=== PATIENT | female | born 1990 | race Caucasian/White ===

== ENCOUNTER → 2020-03-11 | Outpatient (CLI) | payer BC, OTHER ==
[2020-03-11 13:58] VITALS: BP 151/74; PULSE 100; RESP 18; TEMP 98.3
--- NOTE | 2020-03-11 14:28 | P.HPBAR ---
Bariatric H&P - History & Physicial H&P Date: 03/11/20 History & Physicial: Visit/CC: initial visit Patient initial contact: Initial weight: Initial weight in pounds: Height: 5 ft 3 in Initial BMI: Last weight: Current weight: 112.945 kg Current weight in pounds: Current BMI: [place] body weight (based on NIH guidelines): Excess body weight loss: The patient is a 30 year-old F who presents for Bariatric Assessment. She reports having the sleeve. She has severe panniculitis. She reports severe skin sores. She cannot lose weight. She had gallstones in the past. She had a sleeve 2011. Highest weight 340 pounds. Lowest weight 220 pounds. She had sleeve and had her baby in year. Dr Rai did the band to sleeve. She had chronic nausea. Burrer [employer] notes needed. She had skin problems in the past year all along and does not go away. Will need pictures. She is being treated for hidra-adenitis. She is pending leno. She wants assessment of her sleeve. She wants treatment of her weight gain. Has 10 pounds. PLAN: 1. Nystatin powder 2. Food diary journal 3. Needs labs Past Medical History Past Medical History: Asthma, GERD/Reflux Additional Past Medical History / Comment(s): "high heart rate"; low iron - anemia History of Any Multi-Drug Resistant Organisms: MRSA Year Discovered:: 2009 MDRO Source:: abdomen Past Surgical History: Adenoidectomy, Section, Cholecystectomy, Tonsillectomy Additional Past Surgical History / Comment(s): csection X1, wisdom teeth, lap band 2009, sleeve 2012 Past Anesthesia/Blood Transfusion Reactions: No Reported Reaction Past Psychological History: ADD/ADHD, Anxiety, Depression Smoking Status: Current every day smoker Past Alcohol Use History: None Reported Past Drug Use History: None Reported Surgical - Exam Vital Signs Temp Pulse Resp BP 98.3 F 100 18 151/74 03/11/20 13:46 03/11/20 13:46 03/11/20 13:46 03/11/20 13:46 Bariatric Checklist Checklist: Plan: Checklist: EGD: 1. Hiatal hernia: 2. H. Pylori: HgbA1c: Vitamin D: Smoking: Primary care physician referral: DOUG Mcdaniel Psychiatry clearance: Cardiology clearance: Sleep study: Diet journal: VTE risk score: VTE risk level: Rehab needs at discharge:
[2020-03-11 15:47] LABS: HGB 12.5 gm/dL (11.4-16.0); MCH 24.4 pg (25.0-35.0); MCHC 32.1 g/dL (31.0-37.0); Mean Platelet Volume 8.7; Microcytosis Slight; Platelet Count 288 k/uL (150-450); RBC 5.12 m/uL (3.80-5.40); RDW 15.9 % (11.5-15.5)
[2020-03-12 00:19] LABS: % Iron Saturation 38.56 (12.00-45.00); African American GFR (CKD) 134.7 (60.0-200.0); Albumin 4.1 g/dL (3.80-4.90); Albumin/Globulin Ratio 1.64 (1.60-3.17); Anion Gap 8.1 mmol/L (4.00-12.00); BUN/Creat Ratio 8.57 Ratio (12.00-20.00); Calcium 8.9 mg/dL (8.7-10.3); Carbon Dioxide 26.9 mmol/L (21.6-31.8); Chol/HDL Ratio 4.74; Globulin 2.5 g/dL (1.6-3.3); LDL Cholesterol,Calculated 105.6 mg/dL (0.0-131.0); Magnesium 1.7 mg/dL (1.5-2.4); Non-African American GFR(CKD) 116.3 (60.0-200.0); Phosphorus 3.1 mg/dL (2.4-5.1); Potassium 3.6 mmol/L (3.5-5.5); Total Bilirubin 0.4 mg/dL (0.3-1.2); Total Protein 6.6 g/dL (6.2-8.2); VLDL Calculation 21.4 mg/dL (5.00-40.00)
[2020-03-12 00:30] LABS: Ferritin 12.2 ng/mL (10.0-291.0)
[2020-03-12 00:31] LABS: Folate, Serum 4.6 ng/mL
[2020-03-12 00:54] LABS: Hemoglobin A1C 5.4 % (4.0-6.0)
[2020-03-12 03:20] LABS: Partial Thromboplastin Time 26.5 sec (23.5-31.0); Prothrombin Time 10.8 sec (9.9-11.9)
[2020-03-13 13:53] LABS: Zinc, Serum 57 ug/dL (60-130)
[2020-03-14 19:05] LABS: Selenium 120 mcg/L (63-160)
[2020-03-16 06:30] LABS: Vit B1(Thiamine) 67 ug/L (38-122)
[2020-03-16 06:47] LABS: Vitamin A 34 ug/dL (38-106)
== END | disposition home or self-care (01) ==
LOC: BARWHC3 13:32
PROVIDERS: ATTEND Surgery Plastic and Reconstructive Surgery
DX: Z48.815 Encounter for surgical aftercare following surgery on the digestive system (principal); M79.3 Panniculitis, unspecified; L98.9 Disorder of the skin and subcutaneous tissue, unspecified; R11.0 Nausea; E66.01 Morbid (severe) obesity due to excess calories; E89.1 Postprocedural hypoinsulinemia; D50.8 Other iron deficiency anemias; K90.89 Other intestinal malabsorption; E55.9 Vitamin D deficiency, unspecified; K74.1 Hepatic sclerosis; N19 Unspecified kidney failure; K50.90 Crohn's disease, unspecified, without complications; F17.200 Nicotine dependence, unspecified, uncomplicated; Z68.41 Body mass index [BMI] 40.0-44.9, adult; Z90.49 Acquired absence of other specified parts of digestive tract; Z87.19 Personal history of other diseases of the digestive system; Z98.84 Bariatric surgery status
CPT/HCPCS: 80053; 80061; 82306; 82525; 82607; 82728; 82746; 83036; 83540; 83550; 83735; 83970; 84100; 84134; 84255; 84425; 84443; 84590; 84630; 85027; 85610; 85730; 99201

== ENCOUNTER → 2020-04-29 | Outpatient (CLI) | payer OTHER ==
--- NOTE | 2020-04-29 11:05 | FL ---
EXAMINATION TYPE: FL barium swallow DATE OF EXAM: 04/29/2020 CLINICAL INDICATION: 30-year-old female R13.10, dysphagia, history of prior lap band in 2010 with con version to a gastric sleeve 8 years ago. Assess status of surgery. COMPARISON: 07/03/2009 Total Fluoroscopy Time: 1 minute 15 seconds Total images: 35 FINDINGS: The swallowing mechanism is normal and hypopharyngeal anatomy is preserved. The cervical and thoracic portions have a normal course and caliber and normal motility. While only t hin barium was utilized, air-contrast intermittently developed spontaneously. The mucosa is normal an d no persistent filling defect is encountered. There is a small sliding hiatal hernia noted. Postsurgical changes of sleeve gastrectomy. The proxima l aspect of the sleeve is slightly patulous. Images are available for review. IMPRESSION: 1. Small sliding hiatal hernia. 2. Post surgical change of sleeve gastrectomy. The proximal aspect of the spleen is slightly patulous . Images are available for review.
== END | disposition home or self-care (01) ==
LOC: RADUSWWP 10:09
PROVIDERS: ATTEND Surgery Plastic and Reconstructive Surgery
DX: K44.9 Diaphragmatic hernia without obstruction or gangrene (principal); D73.89 Other diseases of spleen; Z98.84 Bariatric surgery status
CPT/HCPCS: 74220

== ENCOUNTER → 2020-04-29 | Outpatient (CLI) | payer OTHER ==
[2020-04-29 14:02] VITALS: BP 168/79; PULSE 86; RESP 18; TEMP 98.2; BMI 44.4
--- NOTE | 2020-04-29 14:06 | P.PN ---
Subjective Progress Note Date: 04/29/20 DATE OF SERVICE: 04/29/2020 CHIEF COMPLAINT: Status post sleeve gastrectomy HISTORY OF PRESENT ILLNESS: Мария Lynch is a 30-year-old female who comes in with lifelong morbid obesity status post sleeve gastrectomy, 2011. She is 8 years out. She reports initial moderate weight loss now with weight regain. She reports worsening gastroesophageal reflux disease. Also she reports panniculitis that is severe with hidra-adenitis. She is on suppressive antibiotics for her panniculitis and being managed by her senior net software engineer. Her symptoms have worsened with her sleeve with regards to her gastroesophageal reflux disease. At height of 5 feet 3 inches, her ideal body weight is 140 pounds. Her highest weight was 340 pounds, BMI 60.4. She comes in 250 pounds from 248 pounds, 2 months ago. She has gained 2 pounds in 2 months. Her body mass index is 44.5. She is 110 pounds overweight. She has lost 90 pounds lifetime. Her lifetime percent excess weight loss is 45%. PAST MEDICAL HISTORY: 1. Morbid obesity due to excess calories 2. Body mass index of 60.4, initial 3. Anxiety 4. Depressive disorder 5. ADD/ADHD 6. History of MRSA 7. Asthma 8. Gastroesophageal reflux disease 9. Hypertensive heart disease 10. Iron deficiency anemia PAST SURGICAL HISTORY: 1. Adenoidectomy 2. section 3. Cholecystectomy 4. Tonsillectomy 5. Lap band 2009 6. Sleeve gastrecgtotmy, 2011 HOME MEDICATIONS: Home Medications Medication Instructions Recorded Confirmed ARIPiprazole [Abilify] 20 mg PO DAILY 03/11/20 03/11/20 Atenolol [Tenormin] 25 mg PO DAILY 03/11/20 03/11/20 DULoxetine HCL [Cymbalta] 60 mg PO BID 03/11/20 03/11/20 Ergocalciferol [Vitamin D2] 50,000 unit PO Q7D 03/11/20 03/11/20 Ferrous Sulfate [Iron] 325 mg PO DAILY 03/11/20 03/11/20 Lisdexamfetamine Dimesylate 70 mg PO QAM 03/11/20 03/11/20 [Vyvanse] Omeprazole [PriLOSEC] 20 mg PO AC-BRKFST 03/11/20 03/11/20 busPIRone HCL [Buspar] 30 mg PO BID 03/11/20 03/11/20 clonazePAM [Klonopin ODT Wafer] 0.25 mg PO BID PRN 03/11/20 03/11/20 ALLERGIES: Allergies Allergy/AdvReac Type Severity Reaction Status Date / Time amoxicillin [From Augmentin] Allergy Anaphylaxis Verified 03/11/20 13:59 cefaclor [From Ceclor] Allergy Anaphylaxis Verified 03/11/20 13:59 clavulanic acid Allergy Anaphylaxis Verified 03/11/20 13:59 [From Augmentin] shellfish derived [Shellfish] Allergy Anaphylaxis Verified 03/11/20 13:59 SOCIAL HISTORY: Tobacco use. FAMILY HISTORY: No family history of ulcerative colitis disease or Crohn's disease. Family history of morbid obesity. No lupus in the family. No reports of stomach or esophageal cancer. REVIEW OF ORGAN SYSTEMS: CONSTITUTIONAL: At height of 5 feet 3 inches, her ideal body weight is 140 pounds. Her highest weight was 340 pounds, BMI 60.4. She comes in 248 pounds. Her body mass index is 44.1. She is 108 pounds overweight. She has lost 92 pounds lifetime. Her lifetime percent excess weight loss is 46%. HEENT: Denies any active troubles with vision or hearing. ENDOCRINE: Denies diabetes. No hypothyroidism. CARDIOVASCULAR: Denies reports of palpitations or heart attacks or chest pain. RESPIRATORY: Denies daytime somnolence. Has asthma. GASTROINTESTINAL: Denies any bright red blood per rectum. No diarrhea. No constipation. Has gastroesophageal reflux disease. MUSCULOSKELETAL: Has lower back pain and joint pain. Has osteoarthritis of the knees. NEURO: No headaches. No seizure disorders. PSYCH: Has depression. No suicidal ideation. Has anxiety. RHEUMATOLOGIC: No lupus. No rheumatoid arthritis. HEMATOLOGIC: Denies any abnormal bleeding or bruising. No personal history of DVTs. SKIN: Has rash. No skin cancer. PHYSICAL EXAM: VITAL SIGNS: Height 5 foot 3 inches, weight 250 pounds. BMI 44.5 Vital Signs Temp 98.2 F 04/29/20 13:58 Pulse 86 04/29/20 13:58 Resp 18 04/29/20 13:58 BP 168/79 04/29/20 13:58 Pulse Ox Intake & Output 04/29/20 04/29/20 04/30/20 06:59 18:59 06:59 Weight 113.852 kg GENERAL: Well-developed in no acute distress. HEENT: No scleral icterus. Extraocular movements grossly intact. Hears conversational speech. No nasal drainage. NECK: Supple without lymphadenopathy. CHEST: Nonlabored respirations with equal bilateral excursions. CARDIOVASCULAR: Regular rate and rhythm. Distal 2+ pulses. ABDOMEN: Obese, soft, nontender, nondistended. Grade 3 panniculus. MUSCULOSKELETAL: No clubbing, cyanosis. NEURO: No focal or lateralizing signs. Cranial nerves 2 through 12 grossly within normal limits. PSYCH: Appropriate affect. Alert and oriented to person, place and time. SKIN: Good skin turgor. Well perfused. STUDIES: Barium swallow independently reviewed with finding of hiatal hernia and stricture along the angularis incisura of her sleeve. LABS: Reviewed with low Zinc, low Vit A, low Vitamin D, and elevated PTH. ASSESSMENT: 1. Morbid obesity due to excess calories 2. Body mass index of 60.4, initial to 44.5 3. Anxiety 4. Depressive disorder 5. ADD/ADHD 6. History of MRSA 7. Asthma 8. Gastroesophageal reflux disease 9. Hypertensive heart disease 10. Iron deficiency anemia 11. Hidra-adenitis 12. Vitamin A deficiency 13. Vitamin D deficiency 14. Zinc deficiency 15. Secondary hyperparathyroidism PLAN: 1. She has worsening gastroesophageal reflux disease with symptomatic hiatal hernia. Recommend hiatal hernia repair. Robotic assisted approach described. 2. Separately, she has symptomatic panniculitis and recommend senior net software engineer follow-up. 3. May benefit follow-up for panniculitis. 4. She is elevated risk for complications with pre-existing gastric procedures. Objective - Vital Signs Vital signs: Intake & Output 04/28/20 04/29/20 04/29/20 18:59 06:59 18:59 Weight 113.852 kg
== END | disposition home or self-care (01) ==
LOC: BARWHC3 13:20
PROVIDERS: ATTEND Surgery Plastic and Reconstructive Surgery
DX: E66.01 Morbid (severe) obesity due to excess calories (principal); F41.9 Anxiety disorder, unspecified; F32.9 Major depressive disorder, single episode, unspecified; F90.9 Attention-deficit hyperactivity disorder, unspecified type; J45.909 Unspecified asthma, uncomplicated; K21.9 Gastro-esophageal reflux disease without esophagitis; I11.9 Hypertensive heart disease without heart failure; D50.9 Iron deficiency anemia, unspecified; I88.9 Nonspecific lymphadenitis, unspecified; E50.9 Vitamin A deficiency, unspecified; E55.9 Vitamin D deficiency, unspecified; E60 Dietary zinc deficiency; N25.81 Secondary hyperparathyroidism of renal origin; Z86.14 Personal history of Methicillin resistant Staphylococcus aureus infection; Z68.41 Body mass index [BMI] 40.0-44.9, adult
CPT/HCPCS: 99211

== ENCOUNTER → 2020-08-19 | Outpatient (CLI) | payer OTHER ==
[2020-08-19 14:30] LABS: Basophils # (A) 0.1 k/uL (0-0.2); Basophils % (A) 1 %; Eosinophils # (A) 0.4 k/uL (0-0.7); Eosinophils % (A) 5 %; HCT 38.1 % (34.0-46.0); Hypochromasia Slight; Lymphocytes # (A) 2.7 k/uL (1.0-4.8); Lymphocytes % (A) 30 %; MCH 24.4 pg (25.0-35.0); MCHC 31.4 g/dL (31.0-37.0); MCV 77.7 fL (80.0-100.0); Monocytes # (A) 0.4 k/uL (0-1.0); Monocytes % (A) 4 %; Neutrophils # (A) 5.4 k/uL (1.3-7.7); Neutrophils % (A) 60 %; Platelet Count 314 k/uL (150-450); RBC 4.91 m/uL (3.80-5.40)
[2020-08-19 15:33] LABS: ALT 21 U/L (4-34); AST 27 U/L (14-36); African American GFR (CKD) >90 (>60 ml/min/1.73 sqM); Alkaline Phosphatase 78 U/L (38-126); Anion Gap 11 mmol/L; Blood Urea Nitrogen 6 mg/dL (7-17); Calcium 9.6 mg/dL (8.4-10.2); Carbon Dioxide 24 mmol/L (22-30); Chloride 105 mmol/L (98-107); Glucose 99 mg/dL (74-99); Non-African American GFR(CKD) >90 (>60 ml/min/1.73 sqM); Potassium 4.4 mmol/L (3.5-5.1); Sodium 140 mmol/L (137-145); Total Bilirubin 0.3 mg/dL (0.2-1.3); Total Protein 7.3 g/dL (6.3-8.2)
== END | disposition home or self-care (01) ==
LOC: LABPAT 13:23
PROVIDERS: ATTEND Surgery Plastic and Reconstructive Surgery
DX: Z01.818 Encounter for other preprocedural examination (principal); N19 Unspecified kidney failure; D50.8 Other iron deficiency anemias; E66.01 Morbid (severe) obesity due to excess calories; K90.89 Other intestinal malabsorption; K74.1 Hepatic sclerosis; K50.90 Crohn's disease, unspecified, without complications
CPT/HCPCS: 80053; 85025; 86850; 86900; 86901; 93005

== ENCOUNTER 2020-08-24 06:35 | Inpatient (IN) | payer OTHER ==
[~2020-08-24 06:35] MED LIST: CLINDAMYCIN 900 MG in DEXTROSE 5% IN WATER 50 ML IVPB PRN; ONDANSETRON 4 MG/2 ML VIAL IVP ONE
[2020-08-24] MEDS: LACTATED RINGERS 1,000 ML IV SCH ×2 (07:20→08:33)
[2020-08-24] MEDS: DEXAMETHASONE SOD PHOSPHATE 4 MG/ML 1 ML VIAL IV ONE ×2 (07:36→12:58)
--- NOTE | 2020-08-24 07:40 | P.GSHP ---
History of Present Illness H&P Date: 08/24/20 CHIEF COMPLAINT: Paraesophageal hiatal hernia with gastroesophageal reflux disease. HISTORY OF PRESENT ILLNESS: The patient is a 30-year-old female who presents with paraesophageal hiatal hernia. She has completed barium swallow including upper endoscopy workup. Now she presents for surgical intervention. PAST MEDICAL HISTORY: Please see list. PAST SURGICAL HISTORY: Please see list. MEDICATIONS: Please see list. ALLERGIES: Please see list. SOCIAL HISTORY: No illicit drug use FAMILY HISTORY: No reports of Crohn disease or ulcerative colitis. REVIEW OF ORGAN SYSTEMS: CONSTITUTIONAL: No reports of fevers or chills. GI: Denies any blood in stools or constipation. PHYSICAL EXAM: VITAL SIGNS: Stable GENERAL: Well-developed pleasant and in no acute distress. HEENT: No scleral icterus. Extraocular movements grossly intact. Moist buccal mucosa. NECK: Supple without lymphadenopathy. CHEST: Unlabored respirations. Equal bilateral excursions. CARDIOVASCULAR: Regular rate and rhythm. Distal 2+ pulses. ABDOMEN: Soft, nondistended. No peritoneal signs. MUSCULOSKELETAL: No clubbing, cyanosis, or edema. SKIN: Well-perfused. Good skin turgor. BARIUM SWALLOW: Hiatal hernia ASSESSMENT: 1. Diaphragmatic paraesophageal hiatal hernia with severe gastroesophageal re flux disease. PLAN: 1. Recommend proceeding with a robotic paraesophageal hiatal hernia with possible mesh. 2. Benefits and risks of surgical intervention was discussed including possibility of open technique. 3. Inpatient hospitalization recommended of 2 nights 4. DVT prophylaxis. 5. Antibiotic prophylaxis. 6. She has also completed a very low caloric high-protein diet to address underlying hepatomegaly. Past Medical History Past Medical History: Asthma, GERD/Reflux Additional Past Medical History / Comment(s): "high heart rate"; low iron - anemia History of Any Multi-Drug Resistant Organisms: MRSA Date of last positivie culture/infection: 2009 MDRO Source:: abdomen Past Surgical History: Adenoidectomy, Section, Cholecystectomy, Tonsillectomy Additional Past Surgical History / Comment(s): csection X1, wisdom teeth, lap band 2009, sleeve 2012 Past Anesthesia/Blood Transfusion Reactions: No Reported Reaction Additional Past Anesthesia/Blood Transfusion Reaction / Comment(s): emotional when waking up from anesthesia Past Psychological History: ADD/ADHD, Anxiety, Depression Smoking Status: Current every day smoker Past Alcohol Use History: None Reported Past Drug Use History: None Reported - Past Family History Mother Family Medical History: No Reported History Medications and Allergies Home Medications Medication Instructions Recorded Confirmed Type ARIPiprazole [Abilify] 20 mg PO HS 03/11/20 08/24/20 History Atenolol [Tenormin] 50 mg PO DAILY 03/11/20 08/24/20 History DULoxetine HCL [Cymbalta] 60 mg PO BID 03/11/20 08/24/20 History Ergocalciferol [Vitamin D2] 50,000 unit PO Q7D 03/11/20 08/24/20 History Ferrous Sulfate [Iron] 325 mg PO DAILY 03/11/20 08/24/20 History Lisdexamfetamine Dimesylate 70 mg PO QAM 03/11/20 08/24/20 History [Vyvanse] Omeprazole [PriLOSEC] 20 mg PO AC-BRKFST 03/11/20 08/24/20 History busPIRone HCL [Buspar] 30 mg PO BID 03/11/20 08/24/20 History clonazePAM [Klonopin ODT Wafer] 0.25 mg PO BID PRN 03/11/20 08/24/20 History Gabapentin [Neurontin] 100 mg PO BID PRN 08/17/20 08/24/20 History Naproxen [Naprosyn] 500 mg PO Q12HR PRN 08/17/20 08/24/20 History Allergies Allergy/AdvReac Type Severity Reaction Status Date / Time amoxicillin [From Augmentin] Allergy Anaphylaxis Verified 08/24/20 07:03 cefaclor [From Ceclor] Allergy Anaphylaxis Verified 08/24/20 07:03 clavulanic acid Allergy Anaphylaxis Verified 08/24/20 07:03 [From Augmentin] shellfish derived [Shellfish] Allergy Anaphylaxis Verified 08/24/20 07:03 Surgical - Exam Vital Signs Temp Pulse Resp BP Pulse Ox 97.0 F L 79 18 109/65 98 08/24/20 07:02 08/24/20 07:02 08/24/20 07:02 08/24/20 07:02 08/24/20 07:02
[2020-08-24] MEDS ORDERED: ACETAMINOPHEN TAB 500 MG TAB PO PRN (07:45)
[2020-08-24] MEDS ORDERED: GABAPENTIN 300 MG CAP PO PRN (07:45)
[2020-08-24] MEDS ORDERED: SCOPOLAMINE 1.5MG/72HR PATCH TRANSDERM PRN (07:49)
[2020-08-24] MEDS ORDERED: MELOXICAM 7.5 MG TAB PO PRN (07:49)
[2020-08-24] MEDS ORDERED: SUCCINYLCHOLINE CHLORIDE 100 MG/5 ML SYR IV ONE (08:27)
[2020-08-24] MEDS ORDERED: GLYCOPYRROLATE 0.2 MG/ML 2 ML VIAL ONE (08:27)
[2020-08-24] MEDS ORDERED: LIDOCAINE 1% INJ 10MG/ML (20 ML MDV) ONE (08:27)
[2020-08-24] MEDS ORDERED: PROPOFOL 10 MG/ML 20 ML VIAL IV ONE (08:27)
[2020-08-24] MEDS ORDERED: ROCURONIUM 10 MG/ML (5 ML VIAL) IV ONE (08:27)
[2020-08-24] MEDS ORDERED: MIDAZOLAM 2 MG/2 ML VIAL ONE (08:27)
[2020-08-24] MEDS ORDERED: fentaNYL (PF) 50 MCG/ML 2 ML AMP ONE (08:27)
[2020-08-24] MEDS ORDERED: NEOSTIGMINE 1 MG/ML 10 ML VIAL ONE (08:27)
[2020-08-24] MEDS ORDERED: KETOROLAC 15 MG/ML 1 ML VIAL ONE (08:27)
[2020-08-24] MEDS ORDERED: BUPIVACAINE-EPI 0.5%-1:200,000 10 ML VIAL SQ ONE (08:58)
[2020-08-24] MEDS ORDERED: LACTATED RINGERS 1,000 ML IV ONE (09:38)
[2020-08-24] MEDS ORDERED: clonazePAM 0.5 MG TAB PO PRN (10:38)
[2020-08-24] MEDS ORDERED: GABAPENTIN 100 MG CAP PO PRN (10:38)
--- NOTE | 2020-08-24 10:55 | P.OP ---
Date of Procedure: 08/24/20 Description of Procedure: SURGEON: ALEIDA DIEZ MD PREOPERATIVE DIAGNOSES: 1. Gastroesophageal reflux disease with erosive esophagitis 2. Paraesophageal hiatal hernia, midline. 3. Morbid obesity due to excess calories, BMI of 44.0 4. History of sleeve gastrectomy 5. Hypertensive heart disease 6. Anxiety disorder 7. Depressive disorder 8. ADD with ADHD 9. Iron deficiency anemia 10. Tobacco abuse disorder POSTOPERATIVE DIAGNOSES: 1. Gastroesophageal reflux disease with erosive esophagitis 2. Paraesophageal hiatal hernia, midline. 3. Morbid obesity due to excess calories, BMI of 44.0 4. History of sleeve gastrectomy 5. Hypertensive heart disease 6. Anxiety disorder 7. Depressive disorder 8. ADD with ADHD 9. Iron deficiency anemia 10. Tobacco abuse disorder 11. Peritoneal adhesions OPERATION: 1. Robotic-assisted da Yasir Xi laparoscopic reduction and repair of incarcerated paraesophageal hiatal hernia, 5 x 3 cm, with [place] Biopatch A 8 x 8 cm. 2. Robotic-assisted da Yasir Xi laparoscopic extensive lysis of adhesions over 1 hour 3. Intraoperative esophagogastroscopy ANESTHESIA: General with local anesthetic. ESTIMATED BLOOD LOSS: 5 mL Pathology: None COMPLICATIONS: None. FINDINGS: 1. Incarcerated upper pole of the stomach within the mediastinum with dissection performed 2. 5 cm paraesophageal incarcerated diaphragmatic hiatal hernia with moderate dissection into the mediastinum. 3. [place] Biopatch A onlay mesh placed. 4. Intra-abdominal esophageal length over 2 cm obtained 5. Severe intra-abdominal peritoneal adhesions of greater omentum and lesser omentum to abdominal wall including sleeve gastrectomy adherent to the undersur face of the liver adding additional complexity to the case over 1 hour INDICATIONS: The patient is a 30-year-old female who presents with gastroesophageal reflux recalcitrant to medical therapy with a symptomatic diaphragmatic hiatal hernia. Preoperative workup including upper endoscopy demonstrated hiatal hernia with erosive esophagitis. Given the severity of her symptoms, she had elected for surgical intervention. Benefits and risks including bleeding, infection, recurrence, dysphagia, injury to the lung, need for further surgery was described at length. Informed consent was obtained. DESCRIPTION: The patient was brought into the operating room and placed in supine position. Preoperatively she had received Lovenox subcutaneously for DVT prophylaxis. After general induction, the abdomen was prepped and draped in standard sterile fashion. The patient had previously voided prior to coming to the operating room. Ioban draping was placed along the abdomen. A timeout protocol was confirmed with the surgical team, for which the patient's name, procedure to be performed including DVT prophylaxis with bilateral SCDs, and preoperative antibiotics were also confirmed. A robotic da Yasir Xi system was prepped and primed. At 15 cm from the xiphoid to just below the umbilicus, proposed port sites were marked with indelible marker along the left axillary line, left mid-clavicular line with each ports were marked 10 cm from each other. A 5 mm 0 degrees laparoscopic trocar entry was performed along the left upper quadrant. The abdomen was insufflated to 15 mmHg pressure was tolerated well. Diagnostic laparoscopy demonstrated no injury to bowel, viscera. No injury had occurred to the small bowel or viscera. Severe peritoneal adhesions incorporating the liver, sleeve gastrectomy was found along the epigastrium and midline. Next, one 8 mm robotic port was placed along the right upper abdomen. An 8-mm port was were placed along the left lateral abdominal wall. The camera 8-mm port was maintained along the epigastrium. Another 12 mm port was placed along the left upper abdominal wall after exchanging the 5 mm port. Please note that the ports were placed at least 20 cm away from the target anatomy. Care was taken to check that each robotic arm were safely away from collision with the bed or the patient. The patient was repositioned in reverse Trendelenburg position at 21-degrees after lowering the bed. The robot was docked above the left side of the patient. Using a grasper for arm 3, a grasper for arm 1, including vessel sealer for arm 2, the robotic system was docked and primed as described. Instruments were interchanged by the statistical assistant. I had sat at the console. Using combination blunt dissection including vessel sealer and electro Bovie cautery for sharp dissection, extensive lysis of adhesions over 1 hour to release perigastric adhesions involving the sleeve to the undersurface of the liver including along the epigastrium. Separately, the sleeve was completely adherent to the undersurface of the left lobe of the liver requiring meticulous dissection using a scissors with cautery without any gastrotomy. No bleeding had occurred along the liver dissection away from the sleeve gastrectomy. Dissection was carried to the hiatus circumferentially using vessel sealer including blunt dissection. The remnant gastrohepatic ligament was cleaved using a vessel sealer. Next, the phrenoesophageal ligament was mobilized and the distal esophagus was mobilized circumferentially. An incarcerated hernia sac was found into the mediastinum. As a result, deep dissection well into the mediastinum was needed to free the proximal sleeve gastrectomy including distal esophagus. The left and right crura was identified. Significant mobilization of the distal to mid esophagus into the mediastinum was performed. Circumferentially, the hernia sac was excised and brought into the abdominal cavity. Care was taken to avoid any gastrotomy to the incarcerated upper pole of the stomach. The measured defect was measured with a ruler consistent with 5 cm axial length and 3 cm in width. After extensive dissection, the distal esophagus at least 2 cm was brought into the abdominal cavity. Once the hiatus and crura was dissected, 2-0 VLOC nonabsorbable suture was placed as a running suture to re-approximate the diaphragmatic hiatus posteriorly. To buttress the repair, a [place] Biopatch A was prepared along the back table and cut in a dominique-hole fashion as to reinforce the repair as an underlay. The mesh was resized posteriorly placed along the crural repair and tagged using nonabsorbable 2-0 VLOC. I went to the head of the bed to perform intraoperative esophagogastroduodenoscopy. An Olympus gastroscope was passed through posterior oropharynx, where the squamocolumnar junction was confirmed at 40 cm from the incisors. The hiatus repair was confirmed at 40 cm from the incisors. The stomach was entered. Intraesophageal length was confirmed over 2 cm within the abdomen by laparoscope. The duodenum was intubated and unremarkable. The scope was temporally withdrawn. A 56-Spanish bougie was placed to adjust the hiatus repair which was snug without tension and left for 1-2 minutes. The bougie was withdrawn. The stomach was reintubated without injury to the mucosa. The stomach had been desufflated. No evidence of leaks were found or mucosal defects of the esophagus or stomach. This concluded the endoscopic portion of the case. The robot was undocked from the patient. I re-scrubbed into the case. All instruments and pneumoperitoneum were evacuated from the abdominal cavity. The incisions were cleansed with dilute hydrogen peroxide with saline solution. Incisions were reapproximated using 4-0 Monocryl in an interrupted subcuticular fashion. The 12-mm port site fascial defect was less than 8 mm in size. Exofinwas applied to the skin. Local anesthetic was infiltrated in all wounds for postop analgesia. Multiple intra-abdominal films were obtained. At the end of the procedure, needle, sponge, and instrument count was verified correct by the surgical oncologist. The patient had tolerated the procedure well and was taken to the postanesthesia unit in stable condition. The patient's mother was notified over the phone regarding intraoperative findings and was pleased with the level of care. COMPLEXITY: Increased complexity of the case secondary to severe peritoneal adhesions from prior history of sleeve gastrectomy. Meticulous dissection of sleeve gastrectomy from liver bed also performed. Extensive lysis of adhesions over 1 hour performed including separate dissection into mediastinum.
[2020-08-24] MEDS: HYDROmorphone 0.5 MG/0.5 ML SYRINGE IVP PRN ×3 (11:25→11:58)
[2020-08-24] MEDS: KETOROLAC 15 MG/ML 1 ML VIAL IVP SCH ×2 (13:02→18:36)
[2020-08-24] MEDS ORDERED: HYOSCYAMINE ORAL DROPS 1.875 MG/15 ML BOTTLE PO PRN (13:10)
[2020-08-24] MEDS ORDERED: NALOXONE 0.4 MG/ML 1 ML VIAL IV PRN (13:10)
[2020-08-24] MEDS ORDERED: HYDROmorphone 1 MG/ML 1 ML SYRINGE IVP PRN (13:10)
[2020-08-24] MEDS: SIMETHICONE 40 MG/0.6 ML DROPS 2,000 MG/30 ML BOTTLE PO SCH ×3 (13:33→21:01)
[2020-08-24] MEDS: PANTOPRAZOLE 40 MG/10 ML VIAL IV SCH (13:35)
[2020-08-24] MEDS ORDERED: SODIUM CHLORIDE 0.9% 2,000 ML IV ONE (14:45)
[2020-08-24] MEDS: ALBUTEROL NEBULIZED 2.5 MG/3 ML INHALATION SCH ×2 (15:25→20:21)
--- NOTE | 2020-08-24 16:31 | FL ---
Single contrast esophagram EXAMINATION TYPE: FL esophagus cervic/pharynx DATE OF EXAM: 08/24/2020 3:39 PM COMPARISON: NONE CLINICAL HISTORY: Status post Enzo fundoplication The patient ingested contrast without difficulty or delay. Noted are changes of Enzo fundoplicatio n. There is no evidence for leak or obstruction. Small amount of residual contrast within the distal esophagus. IMPRESSION: Post-surgical change of Enzo fundoplication without evidence for leak or obstruction.
[2020-08-24] MEDS: CLINDAMYCIN 900 MG in DEXTROSE 5% IN WATER 50 ML IVPB SCH ×2 (17:33)
[2020-08-24] MEDS: DEXAMETHASONE SOD PHOSPHATE 4 MG/ML 1 ML VIAL IV SCH (18:36)
[2020-08-24] MEDS: DULoxetine HCL 60 MG CAPSULE.DR PO SCH (21:01)
[2020-08-24] MEDS: busPIRone HCl 10 MG TAB PO SCH (21:01)
[2020-08-24] MEDS: 0.9% NACL WITH KCL 20 MEQ/L 1,000 ML IV SCH ×2 (21:58)
[2020-08-25] MEDS: CLINDAMYCIN 900 MG in DEXTROSE 5% IN WATER 50 ML IVPB SCH ×2 (00:44)
[2020-08-25] MEDS: KETOROLAC 15 MG/ML 1 ML VIAL IVP SCH ×3 (00:45→11:48)
[2020-08-25] MEDS: DEXAMETHASONE SOD PHOSPHATE 4 MG/ML 1 ML VIAL IV SCH ×3 (00:45→11:48)
[2020-08-25] MEDS: 0.9% NACL WITH KCL 20 MEQ/L 1,000 ML IV SCH ×2 (02:05→06:28)
[2020-08-25 06:28] LABS: Basophils % (A) 0 %; Eosinophils % (A) 0 %; HGB 11.9 gm/dL (11.4-16.0); Lymphocytes # (A) 0.8 k/uL (1.0-4.8); Lymphocytes % (A) 8 %; MCHC 32.1 g/dL (31.0-37.0); MCV 78.1 fL (80.0-100.0); Mean Platelet Volume 9.3; Monocytes # (A) 0.2 k/uL (0-1.0); Monocytes % (A) 2 %; Neutrophils # (A) 9.4 k/uL (1.3-7.7); Neutrophils % (A) 91 %; Platelet Count 273 k/uL (150-450); RBC 4.74 m/uL (3.80-5.40); RDW 15.5 % (11.5-15.5); WBC 10.4 k/uL (3.8-10.6)
[2020-08-25 06:32] LABS: African American GFR (CKD) >90 (>60 ml/min/1.73 sqM); Anion Gap 8 mmol/L; Blood Urea Nitrogen 6 mg/dL (7-17); Calcium 8.8 mg/dL (8.4-10.2); Carbon Dioxide 23 mmol/L (22-30); Chloride 110 mmol/L (98-107); Magnesium 1.9 mg/dL (1.6-2.3); Non-African American GFR(CKD) >90 (>60 ml/min/1.73 sqM); Phosphorus 3.3 mg/dL (2.5-4.5); Potassium 4.6 mmol/L (3.5-5.1); Sodium 141 mmol/L (137-145)
[2020-08-25] MEDS ORDERED: 0.9% NACL WITH KCL 20 MEQ/L 1,000 ML IV SCH (08:00)
[2020-08-25] MEDS: ALBUTEROL NEBULIZED 2.5 MG/3 ML INHALATION SCH ×3 (08:11→15:42)
[2020-08-25] MEDS: SIMETHICONE 40 MG/0.6 ML DROPS 2,000 MG/30 ML BOTTLE PO SCH ×2 (08:29→13:45)
[2020-08-25] MEDS: busPIRone HCl 10 MG TAB PO SCH (08:30)
[2020-08-25] MEDS: PANTOPRAZOLE 40 MG/10 ML VIAL IV SCH (08:30)
[2020-08-25] MEDS: DULoxetine HCL 60 MG CAPSULE.DR PO SCH (08:31)
[2020-08-25] MEDS ORDERED: NON FORMULARY DRUG (Lisdexamfetamine Dimesylate [Vyvanse] 70 MG Capsule) PO SCH (09:00)
[2020-08-25] MEDS ORDERED: atenoloL 50 MG TAB PO SCH (09:00)
[2020-08-25] MEDS ORDERED: ENOXAPARIN 40 MG/0.4 ML SYRINGE SQ SCH (09:00)
[2020-08-25 13:11] VITALS: BMI 43.9
[2020-08-25 14:19] VITALS: BP 123/62; PULSE 80; RESP 16; TEMP 98.2
[2020-08-27 08:08] LABS: Anabasine Urine <2.0 ng/mL (<2.0)
--- NOTE | 2020-08-27 11:29 | P.DS ---
Providers Date of admission: 08/24/20 06:35 Expected date of discharge: 08/25/20 Attending physician: Brit Wilson Primary care physician: Jami Fernando, NPC - Discharge Diagnosis(es) (1) BMI 40.0-44.9, adult Status: Acute (2) Gastroesophageal reflux disease with esophagitis Status: Acute (3) Hiatal hernia without gangrene or obstruction Status: Acute (4) History of sleeve gastrectomy Status: Acute (5) Incarcerated hiatal hernia Status: Acute (6) Morbid obesity due to excess calories Status: Acute (7) Peritoneal adhesions Status: Acute Hospital Course: POSTOPERATIVE DIAGNOSES: 1. Gastroesophageal reflux disease with erosive esophagitis 2. Paraesophageal hiatal hernia, midline. 3. Morbid obesity due to excess calories, BMI of 44.0 4. History of sleeve gastrectomy 5. Hypertensive heart disease 6. Anxiety disorder 7. Depressive disorder 8. ADD with ADHD 9. Iron deficiency anemia 10. Tobacco abuse disorder 11. Peritoneal adhesions COURSE: The patient is a 30-year-old female presented with severe gastroesophageal reflux disease including symptomatic hiatal hernia. She had without sequela robotic hiatal hernia repair. Postoperatively, she reported her gastroesophageal reflux disease had resolved. Additionally, strict tobacco cessation was reviewed as to prevent risk of recurrence. Follow-up at the bariatric center in 2-3 days were reviewed. She was tolerating diet. Discharge bariatric instructions were reviewed. Pertinent Studies: Esophagram independently reviewed without obstruction or recurrent hiatal hernia Procedures: OPERATION: 1. Robotic-assisted da Yasir Xi laparoscopic reduction and repair of incarcerated paraesophageal hiatal hernia, 5 x 3 cm, with [place] Biopatch A 8 x 8 cm. 2. Robotic-assisted da Yasir Xi laparoscopic extensive lysis of adhesions over 1 hour 3. Intraoperative esophagogastroscopy ANESTHESIA: General with local anesthetic. ESTIMATED BLOOD LOSS: 5 mL Pathology: None COMPLICATIONS: None. FINDINGS: 1. Incarcerated upper pole of the stomach within the mediastinum with dissection performed 2. 5 cm paraesophageal incarcerated diaphragmatic hiatal hernia with moderate dissection into the mediastinum. 3. [place] Biopatch A onlay mesh placed. 4. Intra-abdominal esophageal length over 2 cm obtained 5. Severe intra-abdominal peritoneal adhesions of greater omentum and lesser omentum to abdominal wall including sleeve gastrectomy adherent to the undersurface of the liver adding additional complexity to the case over 1 hour Patient Condition at Discharge: Good Plan - Discharge Summary Discharge Rx Participant: No New Discharge Prescriptions: New Simethicone 40 mg/0.6 ml Drops [Mylicon Drops] 40 mg PO PCHS PRN #30 ml PRN Reason: Gas Acetaminophen Tab [Tylenol Tab] 1,000 mg PO Q6HR PRN #30 tablet PRN Reason: Pain bisacodyL [Dulcolax] 5 mg PO DAILY PRN #10 tablet.dr PRN Reason: Constipation Ondansetron Odt [Zofran Odt] 4 mg PO Q8HR PRN #9 tab PRN Reason: Nausea Continue clonazePAM [Klonopin ODT Wafer] 0.25 mg PO BID PRN PRN Reason: Anxiety Ergocalciferol [Vitamin D2 (DRISDOL)] 50,000 unit PO Q7D busPIRone HCL [Buspar] 30 mg PO BID Lisdexamfetamine Dimesylate [Vyvanse] 70 mg PO QAM DULoxetine HCL [Cymbalta] 60 mg PO BID ARIPiprazole [Abilify] 20 mg PO HS Ferrous Sulfate [Iron] 325 mg PO DAILY Atenolol [Tenormin] 50 mg PO DAILY Gabapentin [Neurontin] 100 mg PO BID PRN PRN Reason: Pain Naproxen [Naprosyn] 500 mg PO Q12HR PRN PRN Reason: Pain Discontinued Omeprazole [PriLOSEC] 20 mg PO [id number]-BRKFST Discharge Medication List ARIPiprazole [Abilify] 20 mg PO HS 03/11/20 [History] Atenolol [Tenormin] 50 mg PO DAILY 03/11/20 [History] DULoxetine HCL [Cymbalta] 60 mg PO BID 03/11/20 [History] Ergocalciferol [Vitamin D2 (DRISDOL)] 50,000 unit PO Q7D 03/11/20 [History] Ferrous Sulfate [Iron] 325 mg PO DAILY 03/11/20 [History] Lisdexamfetamine Dimesylate [Vyvanse] 70 mg PO QAM 03/11/20 [History] busPIRone HCL [Buspar] 30 mg PO BID 03/11/20 [History] clonazePAM [Klonopin ODT Wafer] 0.25 mg PO BID PRN 03/11/20 [History] Gabapentin [Neurontin] 100 mg PO BID PRN 08/17/20 [History] Naproxen [Naprosyn] 500 mg PO Q12HR PRN 08/17/20 [History] Acetaminophen Tab [Tylenol Tab] 1,000 mg PO Q6HR PRN #30 tablet 08/25/20 [Rx] Ondansetron Odt [Zofran Odt] 4 mg PO Q8HR PRN #9 tab 08/25/20 [Rx] Simethicone 40 mg/0.6 ml Drops [Mylicon Drops] 40 mg PO PCHS PRN #30 ml 08/25/20 [Rx] bisacodyL [Dulcolax] 5 mg PO DAILY PRN #10 tablet. 08/25/20 [Rx] Follow up [facility]ment(s[facility]Ref[place] [facility] [place] [place] [facility] [place] (Notify bariatric center upon arrival) Patient Instructions/Handouts: Laparoscopic Hiatal Hernia Repair (DC) Activity/Diet/Wound Care/Special Instructions: Liquid diet only for 2 weeks until September 07 No lifting over 4 pounds in 4 weeks, September 24August Shower. No soaking in bath tubs for 2 weeks, until September 07 Please notify your surgeon if you develop nausea and vomiting including new onset of abdominal pain. Continue to use incentive spirometry to prevent pneumonias. Please continue to ambulate at home to prevent blood clots in legs. Follow-up at the bariatric center. August shower. Drink 64 oz of fluid daily. Start protein shakes on . Notify bariatric center for temp over 101.0, increased pain, drainage from incisions. No straws or carbonated beverages. Liquid diet only. Sugar content should be less than 6 g to avoid dumping syndrome. Take MOM for constipation. CRUSH, OPEN, OR CUT TABLETS LARGER THAN A SIZE OF A TIC TAC Discharge Disposition: HOME SELF-CARE
== END 2020-08-25 16:20 | disposition home or self-care (01) | DRG 327 ==
LOC: 2ORMAIN 06:35 → 6PED 12:08
PROVIDERS: ADMIT Surgery Plastic and Reconstructive Surgery; ATTEND Surgery Plastic and Reconstructive Surgery
PROC: 0DNU4ZZ Release Omentum, Percutaneous Endoscopic Approach (ICD-10-PCS; 2020-08-24)
PROC: 8E0W4CZ Robotic Assisted Procedure of Trunk Region, Percutaneous Endoscopic Approach (ICD-10-PCS; 2020-08-24)
PROC: 0DJ68ZZ Inspection of Stomach, Via Natural or Artificial Opening Endoscopic (ICD-10-PCS; 2020-08-24)
PROC: 0BUT4JZ Supplement Diaphragm with Synthetic Substitute, Percutaneous Endoscopic Approach (ICD-10-PCS; principal; 2020-08-24 08:30)
DX: K44.0 Diaphragmatic hernia with obstruction, without gangrene (principal); Z68.41 Body mass index [BMI] 40.0-44.9, adult; R16.0 Hepatomegaly, not elsewhere classified; E66.01 Morbid (severe) obesity due to excess calories; I11.9 Hypertensive heart disease without heart failure; Z20.822 Contact with and (suspected) exposure to COVID-19; K21.00 Gastro-esophageal reflux disease with esophagitis, without bleeding; F41.9 Anxiety disorder, unspecified; F32.9 Major depressive disorder, single episode, unspecified; F90.9 Attention-deficit hyperactivity disorder, unspecified type; D50.9 Iron deficiency anemia, unspecified; K66.0 Peritoneal adhesions (postprocedural) (postinfection); J45.909 Unspecified asthma, uncomplicated; K59.00 Constipation, unspecified; F17.210 Nicotine dependence, cigarettes, uncomplicated; Z71.3 Dietary counseling and surveillance; Z79.899 Other long term (current) drug therapy; Z86.14 Personal history of Methicillin resistant Staphylococcus aureus infection; Z98.84 Bariatric surgery status; Z88.0 Allergy status to penicillin; Z91.013 Allergy to seafood; Z88.8 Allergy status to other drugs, medicaments and biological substances; Z91.09 Other allergy status, other than to drugs and biological substances
CPT/HCPCS: 74210; 80051; 80323; 81025; 82310; 82565; 83735; 84100; 84520; 85025; 86850; 86900; 86901; 87635; 94640; 96365

== ENCOUNTER → 2020-08-27 | Outpatient (CLI) | payer OTHER ==
[2020-08-27 15:39] VITALS: BP 135/77; PULSE 93; RESP 16; TEMP 98.1; BMI 43.4
--- NOTE | 2020-08-27 16:09 | P.PN ---
Subjective Progress Note Date: 08/27/20 DATE OF SERVICE: 08/27/2020 CHIEF COMPLAINT: Status post sleeve gastrectomy HISTORY OF PRESENT ILLNESS: Мария Lynch is a 30-year-old female who is status post sleeve gastrectomy, 2011. She is 9 years out. She is now status post hiatal hernia repair, 08/24/20. She is POD 3. She reports no further ports of gastroesophageal reflux disease. She is tolerating diet. At height of 5 feet 3 inches, her ideal body weight is 140 pounds. Her highest weight was 340 pounds, BMI 60.4. She comes in 244 pounds from 241 pounds, 1 week ago. She has gained 3 pounds in 1 week. Her body mass index is 43.4. She is 104 pounds overweight. She has lost 96 pounds lifetime. Her lifetime percent excess weight loss is 48%. PHYSICAL EXAM: VITAL SIGNS: Height 5 foot 3 inches, weight 244 pounds. BMI 43.4 Vital Signs Temp 98.1 F 08/27/20 15:32 Pulse 93 08/27/20 15:32 Resp 16 08/27/20 15:32 BP 135/77 08/27/20 15:32 Pulse Ox GENERAL: Well-developed in no acute distress. HEENT: No scleral icterus. Extraocular movements grossly intact. Hears conversational speech. No nasal drainage. NECK: Supple without lymphadenopathy. CHEST: Nonlabored respirations with equal bilateral excursions. CARDIOVASCULAR: Regular rate and rhythm. Distal 2+ pulses. ABDOMEN: Obese, soft, nontender, nondistended. MUSCULOSKELETAL: No clubbing, cyanosis. NEURO: No focal or lateralizing signs. Cranial nerves 2 through 12 grossly within normal limits. PSYCH: Appropriate affect. Alert and oriented to person, place and time. SKIN: Good skin turgor. Well perfused. ASSESSMENT: 1. Morbid obesity due to excess calories 2. Body mass index of 60.4, initial to 43.4 3. Anxiety 4. Depressive disorder 5. ADD/ADHD 6. History of MRSA 7. Asthma 8. Gastroesophageal reflux disease 9. Hypertensive heart disease 10. Iron deficiency anemia 11. Hidra-adenitis 12. Vitamin A deficiency 13. Vitamin D deficiency 14. Zinc deficiency 15. Secondary hyperparathyroidism 16. Status post hiatal hernia repair 17. Panniculitis 18. Tobacco use PLAN: 1. Strict tobacco cessation and counseling reviewed for optimal recovery. 2. Follow-up in 2 weeks upon transition to a soft diet. Objective - Vital Signs Vital signs: Vital Signs Temp 98.1 F 08/27/20 15:32 Pulse 93 08/27/20 15:32 Resp 16 08/27/20 15:32 BP 135/77 08/27/20 15:32 Pulse Ox Intake & Output 08/26/20 08/27/20 08/27/20 18:59 06:59 18:59 Weight 111.13 kg
== END ==
LOC: BARWHC3 14:25
PROVIDERS: ATTEND Surgery Plastic and Reconstructive Surgery
DX: E66.01 Morbid (severe) obesity due to excess calories (principal); F41.9 Anxiety disorder, unspecified; F32.9 Major depressive disorder, single episode, unspecified; F90.9 Attention-deficit hyperactivity disorder, unspecified type; J45.909 Unspecified asthma, uncomplicated; K21.9 Gastro-esophageal reflux disease without esophagitis; I11.9 Hypertensive heart disease without heart failure; D50.9 Iron deficiency anemia, unspecified; I88.9 Nonspecific lymphadenitis, unspecified; E50.9 Vitamin A deficiency, unspecified; E55.9 Vitamin D deficiency, unspecified; E60 Dietary zinc deficiency; N25.81 Secondary hyperparathyroidism of renal origin; M79.3 Panniculitis, unspecified; Z72.0 Tobacco use; Z98.890 Other specified postprocedural states; Z68.41 Body mass index [BMI] 40.0-44.9, adult; Z86.14 Personal history of Methicillin resistant Staphylococcus aureus infection; Z98.84 Bariatric surgery status; Z88.1 Allergy status to other antibiotic agents; Z91.013 Allergy to seafood
CPT/HCPCS: 99211